=== PATIENT | male | born 1965 | race Caucasian/White ===

== ENCOUNTER 2018-10-11 07:58 | Day surgery (SDC) | payer OTHER ==
[2018-10-04 10:52] LABS: ABSOLUTE EOSINOPHILS # (AUTO) 0.3 10^3/uL (0.0-0.6); ABSOLUTE LYMPHOCYTES (AUTO) 1.5 10^3/uL (0.5-4.7); ABSOLUTE MONOCYTES (AUTO) 0.6 10^3/uL (0.1-1.4); ABSOLUTE NEUT (AUTO) 4.8 10^3/uL (1.7-8.2); BASOPHILS % (AUTO) 0.4 % (0-2); EOSINOPHILS % (AUTO) 4.2 % (0-6); HEMATOCRIT 40.5 % (37.9-51.0); HEMOGLOBIN 13.6 g/dL (13.5-17.0); LYMPHOCYTES % (AUTO) 20.6 % (13-45); MEAN CORPUSCULAR HEMOGLOBIN 28.4 pg (27.0-33.4); MEAN CORPUSCULAR HGB CONC 33.6 g/dL (32.0-36.0); MEAN CORPUSCULAR VOLUME 85 fl (80-97); MONOCYTES % (AUTO) 8.1 % (3-13); PLATELET COUNT 206 10^3/uL (150-450); RED BLOOD COUNT 4.79 10^6/uL (4.35-5.55); RED CELL DISTRIBUTION WIDTH 13.4 % (11.5-14.0); SEGMENTED NEUTROPHILS % (AUTO) 66.7 % (42-78); TOTAL CELLS COUNTED % (AUTO) 100 %; WHITE BLOOD COUNT 7.2 10^3/uL (4.0-10.5)
[2018-10-04 10:58] LABS: APPEARANCE,URINE CLEAR; BILIRUBIN,URINE NEGATIVE (NEGATIVE); COLOR,URINE YELLOW; GLUCOSE, URINE NEGATIVE (NEGATIVE); KETONES,URINE NEGATIVE (NEGATIVE); LEUKOCYTE ESTERASE,URINE NEGATIVE (NEGATIVE); NITRITE,URINE NEGATIVE (NEGATIVE); PROTEIN,URINE NEGATIVE (NEGATIVE); URINE SPECIFIC GRAVITY 1.021; UROBILINOGEN,URINE NEGATIVE mg/dL (<2.0)
[2018-10-04 11:17] LABS: ANION GAP 9 (5-19); BLOOD UREA NITROGEN 21 mg/dL (7-20); CALCIUM 9.8 mg/dL (8.4-10.2); CARBON DIOXIDE 29 mmol/L (22-30); CHLORIDE 104 mmol/L (98-107); GLUCOSE 124 mg/dL (75-110); POTASSIUM 4.3 mmol/L (3.6-5.0); SODIUM 141.7 mmol/L (137-145)
--- NOTE | 2018-10-04 12:59 | RADIOLOGY REPORT (SQ) ---
EXAM DESCRIPTION: CHEST PA/LATERAL COMPLETED DATE/TIME: 10/04/2018 11:24 am REASON FOR STUDY: PRE-OP COMPARISON: None. EXAM PARAMETERS: NUMBER OF VIEWS: two views TECHNIQUE: Digital Frontal and Lateral radiographic views of the chest acquired. RADIATION DOSE: NA LIMITATIONS: none FINDINGS: LUNGS AND PLEURA: No opacities, masses or pneumothorax. No pleural effusion. MEDIASTINUM AND HILAR STRUCTURES: No masses or contour abnormalities. HEART AND VASCULAR STRUCTURES: Heart normal size. No evidence for failure. BONES: No acute findings. HARDWARE: None in the chest. OTHER: No other significant finding. IMPRESSION: NO SIGNIFICANT RADIOGRAPHIC FINDING IN THE CHEST. TECHNICAL DOCUMENTATION: JOB ID: [id number] [employer]- All Rights Reserved Reading location - IP/workstation name: [email or web address]
--- NOTE | 2018-10-04 21:26 | EKG REPORT ---
SEVERITY:- NORMAL ECG - SINUS RHYTHM : Confirmed by: Adelina Umana MD 04-Oct-2018 21:25:03
[~2018-10-11 07:58] MED LIST: ACETAMINOPHEN 0 MG/0 ML RTUPB IV ONE; CEFAZOLIN 2 GM/D5W RTU 2 GM/50 ML RTUPB IV PRN; DEXAMETHASONE SOD PHOSPHATE INJ 4 MG/1 ML VIAL ONE; FENTANYL CITRATE INJ/PF 100 MCG/2 ML AMPUL ONE; LACTATED RINGERS 1000 ML IV PRN; LIDOCAINE 0.5% INJ-PF (5 MG/ML) 50 ML SDV ONE; LIDOCAINE 0.5% INJ-PF (5 MG/ML) 50 ML SDV SUBCUT PRN; MIDAZOLAM 2 MG/2 ML INJ ONE; ONDANSETRON HCL INJ/PF 4 MG/2 ML SDV ONE; PROPOFOL INJ 200 MG/20 ML VIAL IV ONE
[2018-10-11] MEDS ORDERED: CEFAZOLIN 2 GM/D5W RTU 2 GM/50 ML RTUPB IV ONE (08:25)
[2018-10-11] MEDS ORDERED: MEPERIDINE HCL/PF INJ 25 MG/1 ML DISP.SYRIN IV PRN (09:40)
[2018-10-11] MEDS ORDERED: FENTANYL CITRATE INJ/PF 100 MCG/2 ML AMPUL IV PRN ×3 (09:40)
[2018-10-11] MEDS ORDERED: ONDANSETRON HCL INJ/PF 4 MG/2 ML SDV IV PRN (09:40)
[2018-10-11] MEDS ORDERED: DIPHENHYDRAMINE HCL 50 MG/ML VIAL IV PRN (09:40)
[2018-10-11] MEDS ORDERED: PROMETHAZINE HCL INJ 25 MG/1 ML VIAL IV PRN ×2 (09:40)
[2018-10-11] MEDS ORDERED: MORPHINE SULFATE 10 MG/ML INJ IV PRN (09:40)
[2018-10-11] MEDS ORDERED: BUPIVACAINE HCL 0.5 % INJ/PF 30 ML SDV ONE (10:02)
[2018-10-11] MEDS ORDERED: LIDOCAINE 1%/EPINEPHRINE INJ 20 ML VIAL ONE (10:02)
[2018-10-11] MEDS ORDERED: MIDAZOLAM 2 MG/2 ML INJ ONE (10:07)
[2018-10-11] MEDS ORDERED: DEXMEDETOMIDINE INJ 80 MCG/20 ML VIAL IV ONE (10:07)
[2018-10-11] MEDS ORDERED: KETAMINE HCL INJ 500 MG/10 ML VIAL ONE (10:07)
[2018-10-11] MEDS ORDERED: FENTANYL CITRATE INJ/PF 100 MCG/2 ML AMPUL ONE (10:07)
[2018-10-11] MEDS ORDERED: ACETAMINOPHEN 1,000 MG/100 ML RTUPB IV ONE (10:08)
[2018-10-11] MEDS ORDERED: PROPOFOL INJ 200 MG/20 ML VIAL IV ONE (10:08)
--- NOTE | 2018-10-11 11:22 | Operative Report ---
Operative Report DATE OF SURGERY: 10/11/18 PREOPERATIVE DIAGNOSIS: Right lateral meniscal bucket-handle tear POSTOPERATIVE DIAGNOSIS: Right lateral meniscal bucket-handle tear. Grade I chondromalacia lateral compartment. Intact ACL. Intact medial meniscus. 2.5 cm chondral lesion medial femoral condyle. 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 The knee is insufflated with accommodation Marcaine, Xylocaine, and epinephrine. Subsequent medial lateral infrapatellar portal created for the or arthroscope and reduction and debridement instrumentation. The joint is examined in systematic fashion findings as above. Using combination of basket Meyer, mechanical shaver, and electric frequency ablation probe a partial lateral meniscectomy was performed from approximately 6:00 to 10:00 on the face of the dial. Likewise the medial femoral condyle chondral lesion which is mostly on the medial aspect is debrided using a mechanical shaver. Microfracture was then performed to encourage marrow ingrowth. The joint is examined again examined in systematic fashion no new findings. Instrumentation was removed. The portals reapproximated interrupted nylon. A sterile compressive dressing was applied. The patient's return to PACU in satisfactory condition.
--- NOTE | 2018-10-11 11:25 | Discharge Summary ---
Discharge Summary (SDC) - Discharge Final Diagnosis: Right lateral meniscal tear Date of Surgery: 10/11/18 Discharge Date: 10/11/18 Condition: Good Treatment or Instructions: Activity as tolerated. Remove compressive wrap on Thursday. Underlying OpSite dressing to remain intact until you return to the office. No tub baths or immersion of the extremity. Prescriptions: Oxycodone HCl/Acetaminophen [Percocet 5-325 mg Tablet] 1 tab PO Q6 PRN #40 tab PRN Reason: Referrals: CHEMA EDMONDS MD [Primary Care Provider] - Discharge Diet: As Tolerated, Regular Respiratory Treatments at Home: Deep Breathing/Coughing Discharge Activity: Balance Activity w/Rest, No tub bath Home Care Assistance: None Needed Report the Following to Your Physician Immediately: Shortness of Breath, Fever over 101 Degrees, Drainage-Foul Smelling
[2018-10-11] MEDS ORDERED: ONDANSETRON HCL INJ/PF 4 MG/2 ML SDV ONE (11:28)
[2018-10-11] MEDS ORDERED: GLYCOPYRROLATE 1 MG/5 ML SYRINGE ONE (11:28)
[2018-10-11] MEDS ORDERED: KETOROLAC TROMETHAMINE 60 MG/2 ML SDV ONE (11:28)
[2018-10-11] MEDS ORDERED: DEXAMETHASONE SOD PHOSPHATE INJ 4 MG/1 ML VIAL ONE (11:28)
[2018-10-11] MEDS ORDERED: LIDOCAINE 2% INJ-PF (20 MG/ML) 2 ML AMPUL ONE (11:28)
[2018-10-11] MEDS ORDERED: SUCCINYLCHOLINE CHLORIDE INJ 200 MG/10 ML VIAL ONE (11:28)
[2018-10-11] MEDS ORDERED: METOCLOPRAMIDE HCL INJ/PF 10 MG/2 ML SDV ONE (11:28)
[2018-10-11 13:54] VITALS: BP 138/80
== END 2018-10-11 13:25 | disposition home or self-care (01) ==
LOC: OROUT 07:58
PROVIDERS: ATTEND Orthopaedic Surgery
DX: S83.281A Other tear of lateral meniscus, current injury, right knee, initial encounter (principal); X58.XXXA Exposure to other specified factors, initial encounter; I10 Essential (primary) hypertension; E66.9 Obesity, unspecified; Z68.41 Body mass index [BMI] 40.0-44.9, adult; M22.41 Chondromalacia patellae, right knee; Z01.810 Encounter for preprocedural cardiovascular examination
CPT/HCPCS: 93005; 36415 ×2; 84132; 85025; 80048; 81001; 71046; 93010; 29881; 29879; J2250; J3490 ×6; J1100; J1885; J3010; J2765; J0330; J2405; J0690; J0131; 1400; J2704

== ENCOUNTER → 2020-08-08 | Outpatient (CLI) | payer OTHER ==
--- NOTE | 2020-08-08 16:53 | RADIOLOGY REPORT (SQ) ---
EXAM DESCRIPTION: CHEST 2 VIEWS IMAGES COMPLETED DATE/TIME: 08/08/2020 4:43 pm REASON FOR STUDY: PRE OP TESTING COMPARISON: 10/04/2018. EXAM PARAMETERS: NUMBER OF VIEWS: two views TECHNIQUE: Digital Frontal and Lateral radiographic views of the chest acquired. RADIATION DOSE: NA LIMITATIONS: none FINDINGS: LUNGS AND PLEURA: No opacities, masses or pneumothorax. No pleural effusion. MEDIASTINUM AND HILAR STRUCTURES: No masses or contour abnormalities. HEART AND VASCULAR STRUCTURES: Heart normal size. No evidence for failure. BONES: No acute findings. HARDWARE: None in the chest. OTHER: No other significant finding. IMPRESSION: NO ACUTE RADIOGRAPHIC FINDING IN THE CHEST. TECHNICAL DOCUMENTATION: JOB ID: [id number] [employer]- All Rights Reserved Reading location - IP/workstation name: [email or web address]
[2020-08-08 17:16] LABS: ABSOLUTE EOSINOPHILS # (AUTO) 0.4 10^3/uL (0.0-0.6); ABSOLUTE LYMPHOCYTES (AUTO) 1.8 10^3/uL (0.5-4.7); ABSOLUTE MONOCYTES (AUTO) 0.8 10^3/uL (0.1-1.4); ABSOLUTE NEUT (AUTO) 5.3 10^3/uL (1.7-8.2); BASOPHILS % (AUTO) 0.4 % (0-2); EOSINOPHILS % (AUTO) 4.4 % (0-6); HEMATOCRIT 39.9 % (37.9-51.0); HEMOGLOBIN 13.3 g/dL (13.5-17.0); MEAN CORPUSCULAR HEMOGLOBIN 28.8 pg (27.0-33.4); MEAN CORPUSCULAR HGB CONC 33.2 g/dL (32.0-36.0); MEAN CORPUSCULAR VOLUME 87 fl (80-97); MONOCYTES % (AUTO) 9.4 % (3-13); PLATELET COUNT 202 10^3/uL (150-450); RED CELL DISTRIBUTION WIDTH 13.1 % (11.5-14.0); SEGMENTED NEUTROPHILS % (AUTO) 63.8 % (42-78); TOTAL CELLS COUNTED % (AUTO) 100 %; WHITE BLOOD COUNT 8.3 10^3/uL (4.0-10.5)
[2020-08-08 17:18] LABS: APPEARANCE,URINE CLEAR; BILIRUBIN,URINE NEGATIVE (NEGATIVE); COLOR,URINE STRAW; GLUCOSE, URINE NEGATIVE (NEGATIVE); KETONES,URINE NEGATIVE (NEGATIVE); LEUKOCYTE ESTERASE,URINE NEGATIVE (NEGATIVE); NITRITE,URINE NEGATIVE (NEGATIVE); PROTEIN,URINE NEGATIVE (NEGATIVE); URINE SPECIFIC GRAVITY 1.013; UROBILINOGEN,URINE NEGATIVE mg/dL (<2.0)
[2020-08-08 17:39] LABS: ALBUMIN 4.2 g/dL (3.5-5.0); BLOOD UREA NITROGEN 25 mg/dL (7-20); CALCIUM 9.7 mg/dL (8.4-10.2); GLUCOSE 134 mg/dL (75-110); POTASSIUM 4.8 mmol/L (3.6-5.0)
--- NOTE | 2020-08-08 17:41 | EKG REPORT ---
SEVERITY:- NORMAL ECG - SINUS RHYTHM : Confirmed by: Todd Tomas MD 08-Aug-2020 17:41:32
[2020-08-08 17:42] LABS: CARBON DIOXIDE 33 mmol/L (22-30); CHLORIDE 101 mmol/L (98-107)
[2020-08-08 17:44] LABS: ANION GAP 4 (5-19); C-REACTIVE PROTEIN < 5.0 mg/L (<10.0)
[2020-08-08 17:54] LABS: ERYTHROCYTE SEDIMENTATION RATE 9 mm/hr (0-20)
== END ==
LOC: OD 15:39
PROVIDERS: ATTEND Orthopaedic Surgery
DX: Z01.810 Encounter for preprocedural cardiovascular examination (principal); Z01.811 Encounter for preprocedural respiratory examination; Z01.812 Encounter for preprocedural laboratory examination; E11.9 Type 2 diabetes mellitus without complications
CPT/HCPCS: 36415; 71046; 80048; 81001; 82040; 82306; 83036; 85025; 85652; 86140; 87070; 93005; 93010